=== PATIENT | female | born 1960 | race Two or more races ===

== ENCOUNTER 2023-04-23 16:24 | Emergency (ER) | payer OTHER ==
[~2023-04-23] VITALS: Ht 152.4 cm; Wt 59.9 kg
[2023-04-23] MEDS ORDERED: METFORMIN HCL500 M3 PO (17:44)
[2023-04-23] MEDS ORDERED: GLIPIZIDE ER5 MG PO (17:45)
[2023-04-23] MEDS ORDERED: LOSARTAN POTASS25 MG PO (17:45)
[2023-04-23] MEDS ORDERED: TUSNEL LIQUID178 ML PO (20:16)
[2023-04-23] MEDS ORDERED: ZITHROMAX500 MG PO (20:16)
== END 2023-04-23 20:29 | disposition home or self-care (01) ==
LOC: ER 16:24
DX: J06.9 Acute upper respiratory infection, unspecified (principal); Z20.822 Contact with and (suspected) exposure to COVID-19; E11.9 Type 2 diabetes mellitus without complications; I10 Essential (primary) hypertension